=== PATIENT | male | born 1970 | race Caucasian/White ===

== ENCOUNTER 2018-12-09 06:35 | Inpatient (IN) | payer BC ==
[2018-12-06 16:02] VITALS: BMI 33.0
[2018-12-09] VITALS (24 sets, daily range): BP systolic 91–137; BP diastolic 60–80; PULSE 90–112; RESP 16–22; Ht 180.3 cm; Wt 103.1 kg
[~2018-12-09] VITALS: Ht 180.3 cm; Wt 103.1 kg
--- NOTE | 2018-12-09 05:50 | HPN ---
Date/Time of Note Date/Time of Note DATE: 12/09/18 TIME: 05:50 Interval H&P Admission Note Pt. seen H&P reviewed: No system changes STEPHANI LEVINE MD Dec 09, 2018 05:50
--- NOTE | 2018-12-09 05:54 | OPR ---
Date/Time of Note Date/Time of Note DATE: 12/09/18 TIME: 05:51 Operative Report Procedure Date: Dec 09, 2018 Preoperative Diagnosis Failed left reverse total shoulder replacement Postoperative Diagnosis 1. Failed left reverse total shoulder replacement Operation/Procedure Performed 1. Revision of left reverse total shoulder replacement 2. Injection of PRP solution Surgeon see signature line Combination Saw Operator Tony Metcalf MD Second Combination Saw Operator: DAYNA PEREZ PA-C Anesthesia Type: general Estimated Blood Loss: 50 - 100 ml's Transfusion none Specimen None Grafts/Implants See op note Complications none Pt Condition Post Procedure: stable Disposition: PACU Procedure Description GRADING SUPERVISOR SURGEON: Tony Metcalf MD was asked to be present for this case at my request. Assistance was necessary as a result of the highly technical nature of this operation. When performing an open total shoulder replacement, it is critical to have a trained licensed investment sales assistant who is an expert in handling the extremity and assisting the surgeon in tasks such as manipulation of the arm, protection of the neurovascular structures and positioning the implants. This assistance cannot be performed by a bio medical technician, as it is considered an integral part of the procedure and Dr. Metcalf should be compensated for his time. PROCEDURE IN DETAIL: Following the administration of general anesthesia supplemented with a peripheral nerve block for postoperative pain control, the patient was examined under anesthesia. Examination of the left shoulder revealed that the humeral head was sitting slightly anteriorly with rotation. The right forearm was prepped and 60 cc of blood were drawn using a 60 cc syringe coated with anticoagulant. The blood was harvested from the patient and given to the product representative who prepared PRP concentrate. The patient was then placed in the beach chair position. Sterile prep and drape was then undertaken. An extended deltopectoral incision was then created through the prior incision. The deltopectoral interval was then exposed and the conjoined tendon was identified and retracted medially. The humeral component was then identified and what appeared to be perhaps some synovitic tissue was then noted. A portion of this tissue was sent for culture. In addition, a fresh frozen pathological analysis was then performed. The fresh frozen revealed no inflammatory cells. The decision was then made to revise the humeral component. The humeral component was then removed with osteotomes and mallet. The canal was intact distally. The tuberosities were slightly comminuted. The glenoid component was then evaluated. The position of the components was good. There was no inflammation deep. The humerus was then reamed and prepared for a 12 mm humeral stem component with a standard metaphyseal component, which was retroverted 20 degrees. A 10 mm crusher operator with a 6 mm deep liner was then placed in the use was seen to be the best fit. The joint was irrigated and the medullary canal infiltrated with the PRP solution that was prepared previously. The actual components were implanted with solid fixation. The arm was taken through full range of motion with no evident instability. The joint was then thoroughly irrigated, the deep tissues were approximated usi ng #1 suture followed by closure of the deep layer using 2-0 Monocryl. The skin was closed using 4-0 Monocryl suture, and a Prenio dressing. An Ultrasling was then applied. The patient was awakened and transported to the recovery room in stable condition. Estimated blood loss for this procedure was 150 cc. Radiographs will be obtained in the recovery room. STEPHANI LEVINE MD Dec 09, 2018 05:54
[~2018-12-09 06:35] MED LIST: BUPIVACAINE 0.5% (SDV) 30 ML, morphine SULFATE (PF) 8 MG, EPINEPHrine 0.3 MG, KETOROLAC... IRR SCH; CEFAZOLIN 2 GM/50 ML (PMX) 50 ML IVPB SCH; DEXAMETHASONE 1 MG TAB PO SCH; GABAPENTIN 300 MG CAP PO SCH; HYDR-3609 PO; LACTATED RINGER'S 1,000 ML IV ONE; MIRT30TA PO; TRANEXAMIC ACID 1GM/100ML(PMX) 100 ML IVPB SCH; ZOLP10TA PO
[2018-12-09] MEDS ORDERED: CA CHLORIDE 10% 10 ML SYRINGE ONE (07:12)
[2018-12-09] MEDS ORDERED: THROMBIN 5000 UNIT (RECOTHROM) VIAL ONE (07:12)
[2018-12-09] MEDS ORDERED: POLYMYXIN/BACITRACIN 1L IRRIG ONE (07:12)
[2018-12-09] MEDS ORDERED: BUPIVACAINE 0.5%/EPI (SDV) 30 ML INJ ONE (07:12)
[2018-12-09] MEDS ORDERED: TRANEXAMIC ACID 1GM/100ML(PMX) 200 ML ONE (07:12)
[2018-12-09] MEDS ORDERED: CEFAZOLIN 1 GM INJ ONE (07:44)
[2018-12-09] MEDS ORDERED: FENTAnyl 50 MCG/ML VIAL ONE (07:44)
[2018-12-09] MEDS ORDERED: MIDAZOLAM 1 MG/ML 2 ML INJ ONE (07:44)
[2018-12-09] MEDS ORDERED: ROPIVACAINE 0.5 % 30 ML VIAL ONE (07:44)
[2018-12-09] MEDS ORDERED: PROPOFOL 20 ML ONE (07:44)
[2018-12-09] MEDS ORDERED: ROCURONIUM 50 MG INJ ONE (07:44)
[2018-12-09] MEDS ORDERED: ESOM20CA PO (07:52)
--- NOTE | 2018-12-09 07:56 | PREAC ---
Date/Time of Note Date/Time of Note DATE: 12/09/18 TIME: 07:55 Anesthesia Eval and Record Evaluation Time Pre-Procedure Interview DATE: 12/09/18 TIME: 07:55 Age 48 Sex male NPO: 8 hrs Preoperative diagnosis Left Shoulder OA Planned procedure Left Revision Reverse Total Shoulder Replacement Past Medical History Past Medical History: Includes Musculoskeletal: Osteoarthritis GI: Obesity Surgery & Anesthesia Issues No known issue Meds Anticoagulation: No Beta Kaela within 24 hr: No Reason Beta Kaela not given: Pt. not on B-Kaela Reported Medications Esomeprazole Mag Trihydrate (Nexium) 20 Mg Capsule.dr, 20 MG PO DAILY, #30 CAP 12/09/18 Zolpidem Tartrate* (Ambien*) 10 Mg Tablet, 12.5 MG PO QHS PRN for INSOMNIA, TAB 12/06/18 Mirtazapine* (Remeron*) 30 Mg Tablet, 30 MG PO QHS, TAB 12/06/18 Hydrocodone/Acetaminophen (Hydrocodone-Acetamin 10-325 mg) 1 Each Tablet, 1 EACH PO Q4H WHILE AWAKE for PAIN, TAB 12/06/18 Current Medications Cefazolin Sodium/ Dextrose 50 ml @ 100 mls/hr PRE-OP IVPB ; Start 12/09/18 at 06:30; Stop 12/09/18 at 16:00 Tranexamic Acid 100 ml @ 200 mls/hr Pre-op IVPB ; Start 12/09/18 at 06:30; Stop 12/09/18 at 16:00 Bupivacaine HCl/ Morphine Sulfate/ Epinephrine/ Ketorolac Tromethamine/ Clonidine/Sodium Chloride/ Vancomycin HCl INTRA-OP IRR ; Start 12/09/18 at 06:30 Dexamethasone (Decadron) 2 mg PREOP PO Last administered on 12/09/18at 07:01; Admin Dose 2 MG; Start 12/09/18 at 06:30; Stop 12/09/18 at 16:00 Gabapentin (Neurontin) 300 mg ONCE PO Last administered on 12/09/18at 07:00; Admin Dose 300 MG; Start 12/09/18 at 06:30; Stop 12/09/18 at 16:00 Meds reviewed: Yes Allergies Coded Allergies: No Known Allergy (Unverified , 12/09/18) Allergies Reviewed: Yes Labs/Studies Labs Reviewed: Reviewed by anesthesiologist test: N/A Studies: ECG (n/a), CXR (n/a) Pre-procedure Exam Last vitals Vital Signs Date Temp Pulse Resp B/P (MAP) Pulse Ox O2 O2 Flow FiO2 Time Delivery Rate 12/09/18 97.9 90 16 127/80 97 07:27 (96) Airway: Adequate mouth opening, Adequate thyromental dist Mallampati: Mallampati II Teeth: Normal Lung: Normal Heart: Normal ASA Physical Status ASA physical status: 2 Emergency: None Planned Anesthetic General/MAC: ETT Nerve block: Brachial plexus (left) Planned Pain Management Single shot nerve block, Parenteral pain med Pre-operative Attestations Prior to commencing anesthesia and surgery, the patient was re-evaluated, there was verification of: *The patient's identity *The results of appropriate recent lab work and preoperative vital signs *The above evaluation not changing prior to induction *Anesthetic plan, risk benefits, alternative and complications discussed with patient/family; questions answered; patient/family understands, accepts and wishes to proceed. GERALD MEIER MD Dec 09, 2018 07:56
[2018-12-09] MEDS ORDERED: METOCLOPRAMIDE 10 MG INJ IV PRN (08:00)
[2018-12-09] MEDS ORDERED: HYDROmorphONE 1 MG/5 ML IV SYRINGE IV PRN ×3 (08:00)
[2018-12-09] MEDS ORDERED: FENTAnyl 50 MCG/ML VIAL IV PRN ×3 (08:00)
[2018-12-09] MEDS ORDERED: LABETALOL HCL 20MG INJ IV PRN (08:00)
[2018-12-09] MEDS ORDERED: OXYCODONE/ACETAMINOPHEN (5/325) TAB PO PRN ×2 (08:00)
[2018-12-09] MEDS ORDERED: ONDANSETRON 4 MG INJ IV PRN ×2 (08:00→10:30)
[2018-12-09] MEDS ORDERED: EPHEDrine 25 MG/5 ML SYG IV PRN (08:00)
[2018-12-09] MEDS ORDERED: ONDANSETRON 4 MG INJ ONE (09:04)
[2018-12-09] MEDS ORDERED: KETOROLAC 30 MG INJ ONE (09:04)
[2018-12-09] MEDS ORDERED: METOCLOPRAMIDE 10 MG INJ ONE (09:04)
[2018-12-09] MEDS ORDERED: DEXAMETHASONE 4 MG/ML 5 ML INJ ONE (09:04)
[2018-12-09] MEDS ORDERED: SUGAMMADEX SODIUM 200 MG/2 ML VIAL IV ONE (10:06)
[2018-12-09] MEDS ORDERED: TRANEXAMIC ACID 1GM/100ML(PMX) 100 ML IVPB ONE (10:30)
[2018-12-09] MEDS ORDERED: ZOLPIDEM 5 MG TAB PO PRN (10:30)
[2018-12-09] MEDS ORDERED: LOPERAMIDE 2 MG CAP PO PRN (10:30)
[2018-12-09] MEDS ORDERED: NACL 0.9% 3 ML SYG IV SCH (10:30)
[2018-12-09] MEDS ORDERED: KETOROLAC 15 MG INJ IV PRN (10:30)
[2018-12-09] MEDS ORDERED: oxyCODONE 5 MG TAB PO PRN ×3 (10:30)
[2018-12-09] MEDS ORDERED: MAGNESIUM HYDROXIDE 30ML CUP PO PRN (10:30)
[2018-12-09] MEDS ORDERED: DIPHENHYDRAMINE 50 MG INJ IV PRN (10:30)
[2018-12-09] MEDS: CEFAZOLIN 1 GM/50 ML (PMX) 50 ML IVPB SCH ×2 (11:16→17:58)
--- NOTE | 2018-12-09 12:42 | PAC ---
Date/Time of Note Date/Time of Note DATE: 12/09/18 TIME: 12:41 Post-Anesthesia Notes Post-Anesthesia Note Last documented vital signs Vital Signs Date Temp Pulse Resp B/P (MAP) Pulse Ox O2 O2 Flow FiO2 Time Delivery Rate 12/09/18 18 113/64 94 Nasal 3.0 11:50 (80) Cannula 12/09/18 100 11:45 12/09/18 97.9 10:46 Activity: WNL Respiratory function: WNL Cardiovascular function: WNL Mental status: Baseline Pain reasonably controlled: Yes Hydration appropriate: Yes Nausea/Vomiting absent: Yes GERALD MEIER MD Dec 09, 2018 12:42
[2018-12-09] MEDS: DEXAMETHASONE 2 MG TAB PO SCH ×2 (12:54→17:57)
[2018-12-09] MEDS: ACETAMINOPHEN 500 MG TAB PO SCH ×2 (12:54→17:57)
[2018-12-09] MEDS: HYDROmorphONE 1 MG/ML SYG IV PRN ×3 (13:02→21:02)
--- NOTE | 2018-12-09 13:40 | PDOCDIS ---
Discharge Instructions DIAGNOSIS Discharge Diagnosis Instability left reverse total shoulder CONDITION [id number] Patient Condition: [id number] Good HOME CARE INSTRUCTIONS: [id number] Diet Instructions: [id number] Regular ACTIVITY: [id number] Activity Restrictions: [id number] Slowly Increase Activity Keep Limb Elevated [id number] Bathing Restrictions: [id number] Shower FOLLOW UP/APPOINTMENTS Follow-up Plan 2 weeks in the office SCHOOL/WORK RELEASE May return to School/Work with: With Restrictions School/Work Release Comment: 5 pound tabletop usage for 6 weeks STEPHANI LEVINE MD Dec 09, 2018 13:39
[2018-12-09] MEDS: SENNA/DOCUSATE NA (8.6MG/50MG) TAB PO SCH (20:25)
[2018-12-09] MEDS ORDERED: GABAPENTIN 300 MG CAP PO SCH (21:00)
[2018-12-09] MEDS ORDERED: MIRTAZAPINE 15 MG TAB PO SCH (21:00)
[2018-12-10] MEDS: DEXAMETHASONE 2 MG TAB PO SCH ×2 (00:23→06:18)
[2018-12-10] MEDS: HYDROmorphONE 1 MG/ML SYG IV PRN ×4 (00:47→12:29)
[2018-12-10] MEDS: CEFAZOLIN 1 GM/50 ML (PMX) 50 ML IVPB SCH (02:41)
[2018-12-10] MEDS: ACETAMINOPHEN 500 MG TAB PO SCH ×3 (04:50→12:00)
--- NOTE | 2018-12-10 05:43 | PN ---
Date/Time of Note Date/Time of Note DATE: 12/10/18 TIME: 05:43 Subjective Awake and alert with minimal complaints of pain. Objective Vitals Vital Signs Date Temp Pulse Resp B/P (MAP) Pulse Ox O2 O2 Flow FiO2 Time Delivery Rate 12/09/18 Nasal 2.0 20:00 Cannula 12/09/18 98.4 96 18 129/75 93 19:30 (93) Intake and Output 12/09/18 12/09/18 12/10/18 1515:00 23:00 07:00 IntakeIntake Total 1300 ml 1750 ml OutputOutput Total 200 ml 400 ml 700 ml BalanceBalance 1100 ml 1350 ml -700 ml Wound clean and dry. Neurologically intact. No signs of DVT. Medications Medications Current Medications Mirtazapine (Remeron) 30 mg QHS PO Last administered on 12/09/18at 20:25; Admin Dose 30 MG; Start 12/09/18 at 21:00 Pantoprazole (Protonix Tab) 40 mg DAILY@06 PO ; Start 12/10/18 at 06:00 Senna/Docusate Sodium (Senokot-S) 1 tab BID PO Last administered on 12/09/18 20:25; Admin Dose 1 TAB; Start 12/09/18 at 21:00 Simethicone (Mylicon) 80 mg TID PRN PO .GAS; Start 12/09/18 at 10:30 Magnesium Hydroxide (Milk Of Mag) 30 ml BID PRN PO .CONSTIPATION; Start 12/09/18 at 10:30 Loperamide HCl (Imodium Cap) 2 mg Q6H PRN PO .DIARRHEA; Start 12/09/18 at 10:30 Dexamethasone (Decadron) 2 mg Q6 PO Last administered on 12/10/18at 00:23; Admin Dose 2 MG; Start 12/09/18 at 12:00; Stop 12/10/18 at 06:01 Gabapentin (Neurontin) 300 mg HS PO Last administered on 12/09/18at 20:25; Admin Dose 300 MG; Start 12/09/18 at 21:00 Acetaminophen (Tylenol Tab) 500 mg Q6 PO Last administered on 12/09/18at 17:57; Admin Dose 500 MG; Start 12/09/18 at 12:00 Oxycodone HCl (Roxicodone) 15 mg Q4H PRN PO .PAIN; Start 12/09/18 at 10:30 Oxycodone HCl (Roxicodone) 10 mg Q4H PRN PO .PAIN; Start 12/09/18 at 10:30 Oxycodone HCl (Roxicodone) 5 mg Q4H PRN PO .PAIN; Start 12/09/18 at 10:30 Hydromorphone HCl (Dilaudid) 1 mg Q4H PRN IV .BREAKTHROUGH PAIN Last administered on 12/10/18at 04:59; Admin Dose 1 MG; Start 12/09/18 at 10:30 Ketorolac Tromethamine (Toradol) 15 mg Q6H PRN IV .PAIN Last administered on 12/09/18at 20:25; Admin Dose 15 MG; Start 12/09/18 at 10:30 Ondansetron HCl (Zofran Inj) 4 mg Q6H PRN IV NAUSEA/VOMITING; Start 12/09/18 at 10:30 Diphenhydramine HCl (Benadryl) 25 mg Q6H PRN IV .PRURITUS; Start 12/09/18 at 10:30 Zolpidem Tartrate (Ambien) 10 mg HS PRN PO .INSOMNIA; Start 12/09/18 at 10:30 IV Flush (NS 3 ml) 3 ml per protocol IV ; Start 12/09/18 at 10:30 VTE Prophylaxis Risk score (from Nsg)>0 risk: 3 SCD applied (from Nsg): Yes Lines/Catheters IV Catheter Type: Saline Lock Hardy in Place: No Assessment/Plan Assessment/Plan Assessment: Status post reverse total shoulder revision Plan: Begin PT this morning then discharge after STEPHANI LEVINE MD Dec 10, 2018 05:43
--- NOTE | 2018-12-10 05:44 | DS ---
Date/Time of Note Date/Time of Note DATE: 12/10/18 TIME: 05:43 Discharge Summary Admission/Discharge Info Admit Date/Time Dec 09, 2018 at 06:35 Discharge Date/Time 12/10/2018 Discharge Diagnosis Instability left reverse total shoulder Patient Condition: Good Hospital Course Admitted, underwent uncomplicated procedure. Postop day 1 discharge after PT. Home Meds Reported Medications Esomeprazole Mag Trihydrate (Nexium) 20 Mg Capsule.dr, 20 MG PO DAILY, #30 CAP 12/09/18 Zolpidem Tartrate* (Ambien*) 10 Mg Tablet, 12.5 MG PO QHS PRN for INSOMNIA, TAB 12/06/18 Mirtazapine* (Remeron*) 30 Mg Tablet, 30 MG PO QHS, TAB 12/06/18 Hydrocodone/Acetaminophen (Hydrocodone-Acetamin 10-325 mg) 1 Each Tablet, 1 EACH PO Q4H WHILE AWAKE for PAIN, TAB 12/06/18 Follow-up Plan 2 weeks in the office Primary Care Provider Not On Staff Doctor STEPHANI LEVINE MD Dec 10, 2018 05:44
[2018-12-10] MEDS ORDERED: PANTOPRAZOLE (EC) 40 MG TAB PO SCH (06:00)
[2018-12-10 07:45] VITALS: BP 128/62; PULSE 89; RESP 19
[2018-12-10] MEDS: SENNA/DOCUSATE NA (8.6MG/50MG) TAB PO SCH (08:54)
== END 2018-12-10 12:45 | disposition home or self-care (01) | DRG 483 ==
LOC: REC 06:35 → EDSEX 10:00 → MS1 11:45
PROVIDERS: ADMIT Orthopaedic Surgery; ATTEND Orthopaedic Surgery
PROC: 0RPK0JZ Removal of Synthetic Substitute from Left Shoulder Joint, Open Approach (ICD-10-PCS; 2018-12-09)
PROC: 0RRK00Z Replacement of Left Shoulder Joint with Reverse Ball and Socket Synthetic Substitute, Open Approach (ICD-10-PCS; principal; 2018-12-09 08:30)
DX: T84.028A Dislocation of other internal joint prosthesis, initial encounter (principal); Z96.612 Presence of left artificial shoulder joint
CPT/HCPCS: 73030; 86999; 87070; 87075; 87102; 87116; 88300; 88305; 88331; 97161; C1776; J0171; J0690; J0735; J1100; J1170; J1885; J2250; J2274; J2405; J2765; J2795; J3010; J3370; J7120